=== PATIENT | female | born 1995 ===

== ENCOUNTER 2016-07-02 17:53 | Emergency (ER) | payer MEDICAID, OTHER ==
[2016-07-02 17:54] VITALS: BMI 23.2
[2016-07-02 17:59] VITALS: BP 115/61; PULSE 105; RESP 20; TEMP 97.5; O2SAT 98
--- NOTE | 2016-07-02 18:30 | ED PDOC ---
HPI: Psych/Substance Abuse Time Seen by Provider: 07/02/16 18:06 Chief Complaint (Nursing): Anxiety Chief Complaint (Provider): anxiety ED Caveat: Acuity of Condition Additional Complaint(s): 20yo F in Ed with hx pf untreated panic attacks states she had panic attack today upon awaking from sleep-states this month is the anniversary of he mothers and her birthday. denies SI/HI/hallucinations. Symptoms currently resolved. Past Medical History Reviewed: Historical Data, Nursing Documentation, Vital Signs Vital Signs: Last Vital Signs Temp 97.5 F L 07/02/16 17:57 Pulse 105 H 07/02/16 17:57 Resp 20 07/02/16 17:57 BP 115/61 07/02/16 17:57 Pulse Ox 98 07/02/16 17:57 - Medical History PMH: Asthma - Surgical History Surgical History: Tonsillectomy - Family History Family History: States: Unknown Family Hx - Immunization History Hx Tetanus Toxoid Vaccination: No Hx Influenza Vaccination: No Hx Pneumococcal Vaccination: No - Home Medications Home Medications: Ambulatory Orders Medication Instructions Recorded Alprazolam [Xanax] 0.5 mg PO BID #16 tab 07/02/16 - Allergies Allergies/Adverse Reactions: Allergies Allergy/AdvReac Type Severity Reaction Status Date / Time No Known Allergies Allergy Verified 07/02/16 17:56 Review of Systems ROS Statement: Except As Marked, All Systems Reviewed And Found Negative Physical Exam - Reviewed Nursing Documentation Reviewed: Yes Vital Signs Reviewed: Yes - Physical Exam Appears: Positive for: Non-toxic, No Acute Distress Head Exam: Positive for: ATRAUMATIC, NORMOCEPHALIC Skin: Positive for: Normal Color, Warm Eye Exam: Positive for: Normal appearance, EOMI, PERRL Cardiovascular/Chest: Positive for: Regular Rate, Rhythm. Negative for: Murmur Respiratory: Positive for: Normal Breath Sounds. Negative for: Wheezing Neurologic/Psych: Positive for: Alert, Oriented - ECG O2 Sat by Pulse Oximetry: 98 (RA) Pulse Ox Interpretation: Normal Medical Decision Making Medical Decision Makin:29 Patient given mental clinic referrals, and Rx for Xanax. Patient stable for discharge home. pt offered crisis services, but decline. considering pt is no with SI/HI/ hallucinations pt is safe for d/c. pt given list of mental health counseling centers. Scribe Attestation: Documented by Amanda Hebert, acting as a scribe for Nina Gamez PA-C. Provider Scribe Attestation: All medical record entries made by the Scribe were at my direction and personally dictated by me. I have reviewed the chart and agree that the record accurately reflects my personal performance of the history, physical exam, medical decision making, and the department course for this patient. I have also personally directed, reviewed, and agree with the discharge instructions and disposition Disposition - Clinical Impression Clinical Impression: Anxiety - Patient ED Disposition Is Patient to be Admitted: No Counseled Patient/Family Regarding: Diagnosis, Need For Followup, Rx Given - Disposition Referrals: [facility] Service [Outside] Disposition: Routine/Home Disposition Time: 18:29 Condition: STABLE Prescriptions: Alprazolam [Xanax] 0.5 mg PO BID #16 tab Instructions: Anxiety (ED) Forms: [facility] ED School/Work Excuse
== END 2016-07-02 18:34 | disposition home or self-care (01) ==
LOC: H.ER 17:53
DX: F41.9 Anxiety disorder, unspecified (principal)

== ENCOUNTER 2016-07-05 21:40 | Emergency (ER) | payer MEDICAID ==
[2016-07-05 21:40] VITALS: BMI 23.2
[2016-07-05 23:07] VITALS: BP 113/50; PULSE 78; RESP 18; TEMP 98.3; O2SAT 100
[2016-07-05] MEDS ORDERED: Sodium Chloride 0.9% 1,000 ML IV ONE (23:46)
--- NOTE | 2016-07-06 00:17 | ED PDOC ---
HPI:Nausea, Vomiting, Diarrhea Time Seen by Provider: 07/05/16 23:19 Chief Complaint (Nursing): GI Problem Chief Complaint (Provider): n/v History Per: Patient History/Exam Limitations: no limitations Onset/Duration Of Symptoms: Hrs Current Symptoms Are (Timing): Still Present Have you had recent travel within the past 21 days to any of the following countries: [place], [place], [place] or [place]?: No Exacerbating Factors: None Alleviating Factors: None Additional Complaint(s): 20yo female presents to the ED with c/o several episodes of n/v that began today. No travel or sick contacts. No exacerbating or alleviating factors. Patient also reports mild sore throat described as burning. Past Medical History Reviewed: Historical Data, Nursing Documentation, Vital Signs Vital Signs: Last Vital Signs Temp 98.3 F 07/05/16 23:04 Pulse 78 07/05/16 23:04 Resp 18 07/05/16 23:04 BP 113/50 L 07/05/16 23:04 Pulse Ox 100 07/05/16 23:04 - Medical History PMH: Asthma - Surgical History Surgical History: Tonsillectomy - Family History Family History: States: No Known Family Hx - Immunization History Hx Tetanus Toxoid Vaccination: No Hx Influenza Vaccination: No Hx Pneumococcal Vaccination: No - Home Medications Home Medications: Ambulatory Orders Medication Instructions Recorded Alprazolam [Xanax] 0.5 mg PO BID #16 tab 07/02/16 Famotidine [Pepcid] 20 mg PO Q12 #14 tab 07/06/16 Ondansetron ODT [Zofran ODT] 4 mg PO Q6 PRN #16 odt 07/06/16 - Allergies Allergies/Adverse Reactions: Allergies Allergy/AdvReac Type Severity Reaction Status Date / Time No Known Allergies Allergy Verified 07/02/16 17:56 Review of Systems ROS Statement: Except As Marked, All Systems Reviewed And Found Negative Constitutional: Positive for: Other (no travel or sick contacts ) ENT: Positive for: Throat Pain (mild ) Gastrointestinal: Positive for: Nausea, Vomiting Physical Exam - Reviewed Nursing Documentation Reviewed: Yes Vital Signs Reviewed: Yes - Physical Exam Appears: Positive for: Well, No Acute Distress Head Exam: Positive for: ATRAUMATIC, NORMAL INSPECTION, NORMOCEPHALIC Skin: Positive for: Normal Color, Warm, Dry Eye Exam: Positive for: Normal appearance ENT: Positive for: Normal ENT Inspection Neck: Positive for: Normal, Painless ROM, Supple Cardiovascular/Chest: Positive for: Regular Rate, Rhythm. Negative for: Murmur , Tachycardia Respiratory: Positive for: Normal Breath Sounds. Negative for: Wheezing, Respiratory Distress Gastrointestinal/Abdominal: Positive for: Normal Exam, Bowel Sounds, Soft. Negative for: Tenderness Back: Positive for: Normal Inspection Extremity: Positive for: Normal ROM. Negative for: Deformity, Swelling Neurologic/Psych: Positive for: Alert, Oriented - Laboratory Results Result Diagrams: 07/06/16 00:36 07/06/16 00:36 - ECG O2 Sat by Pulse Oximetry: 100 Pulse Ox Interpretation: Normal (RA) Medical Decision Making Medical Decision Makin: Impression: n/v, sore throat Plan: Labs IVF reassess Patient s/o to Dr. Cruz at 0000 pending labs, IVF, and re-eval. Scribe Attestation: Documented by Duong Laurent acting as a scribe for Javier Chanel MD. Provider Scribe Attestation: All medical record entries made by the Scribe were at my direction and personally dictated by me. I have reviewed the chart and agree that the record accurately reflects my personal performance of the history, physical exam, medical decision making, and the department course for this patient. I have also personally directed, reviewed, and agree with the discharge instructions and disposition. Disposition - Clinical Impression Clinical Impression: Gastritis - Patient ED Disposition Is Patient to be Admitted: Transfer of Care - Disposition Referrals: Felix Tapia MD [Primary Care Provider] - Disposition: Transfer of Care Disposition Time: 00:00 Condition: STABLE Prescriptions: Famotidine [Pepcid] 20 mg PO Q12 #14 tab Ondansetron ODT [Zofran ODT] 4 mg PO Q6 PRN #16 odt PRN Reason: Nausea/Vomiting Instructions: Gastritis (ED) Patient Signed Over To: Sidney Cruz Handoff Comments: pending labs, IVF, re-eval
--- NOTE | 2016-07-06 01:14 | ED PDOC ---
- Laboratory Results Result Diagrams: 07/06/16 00:36 07/06/16 00:36 - ECG O2 Sat by Pulse Oximetry: 100 Medical Decision Making Medical Decision Making: Patient s/o from Dr. Chanel at 0000 pending labs and re-eval. 0230: Labs reviewed, show no clinically significant findings. Patient reports marked improvement in symptoms and is stable for d/c. Dx: gastritis Rx: zofran, pepcid Encouraged patient to drink plenty of fluids and f/u PCP in 2 days Scribe Attestation: Documented by Duong Laurent acting as a scribe for Sidney Cruz MD. Provider Scribe Attestation: All medical record entries made by the Scribe were at my direction and personally dictated by me. I have reviewed the chart and agree that the record accurately reflects my personal performance of the history, physical exam, medical decision making, and the department course for this patient. I have also personally directed, reviewed, and agree with the discharge instructions and disposition. Disposition Counseled Patient/Family Regarding: Studies Performed, Diagnosis, Need For Followup, Rx Given - Clinical Impression Clinical Impression: Gastritis - POA Present On Arrival: None - Disposition Referrals: Felix Tapia MD [Primary Care Provider] - Disposition: Routine/Home Disposition Time: 02:30 Condition: STABLE Prescriptions: Famotidine [Pepcid] 20 mg PO Q12 #14 tab Ondansetron ODT [Zofran ODT] 4 mg PO Q6 PRN #16 odt PRN Reason: Nausea/Vomiting Instructions: Gastritis (ED)
[2016-07-06 01:51] LABS: BASO % 0.4 % (0.0-2.0); EOS % 0.4 % (0.0-4.0); HEMATOCRIT 38.7 % (34.0-47.0); LYMPH # 2.5 K/uL (1.0-4.3); LYMPH % 30.8 % (20.0-40.0); MEAN CORPUSCULAR HEMOGLOBIN 27.6 pg (27.0-31.0); MEAN CORPUSCULAR HGB CONC 32.4 g/dL (33.0-37.0); MEAN PLATELET VOLUME 10.3 fl (7.2-11.7); MONO # 0.7 K/uL (0.0-0.8); NEUT # 4.8 K/uL (1.8-7.0); NEUT % 59.4 % (50.0-75.0); RED CELL DISTRIBUTION WIDTH 13.2 % (11.5-14.5); WHITE BLOOD COUNT 8.1 K/uL (4.8-10.8)
[2016-07-06 01:54] LABS: RBC URINE 6 /hpf (0-3); URINE BILIRUBIN NEGATIVE (NEGATIVE); URINE BLOOD MODERATE (NEGATIVE); URINE COLOR YELLOW (YELLOW); URINE GLUCOSE (UA) NEG (Normal); URINE KETONE TRACE mg/dL (NEGATIVE); URINE LEUKOCYTE ESTERASE NEG Leu/uL (Negative); URINE PROTEIN NEGATIVE (NEGATIVE); WBC URINE 1 /hpf (0-5)
[2016-07-06 01:59] LABS: CHLORIDE 103 mmol/L (98-107); SODIUM 145 mmol/l (132-148)
[2016-07-06 02:01] LABS: AMYLASE 111 U/L (30-110); BILIRUBIN,TOTAL 2.2 mg/dl (0.2-1.3); CARBON DIOXIDE 26 mmol/L (22-30); GFR AFRICAN-AMERICAN > 60
[2016-07-06 02:02] LABS: ALB/GLOB RATIO 1.2 (1.0-2.1); ALKALINE PHOSPHATASE 59 U/L (38-126); ALT/SGPT 20 U/L (9-52); AST/SGOT 22 U/L (14-36); BLOOD UREA NITROGEN 12 mg/dl (7-17); CALCIUM 9.9 mg/dL (8.4-10.2); GLUCOSE,RANDOM 79 mg/dL (65-105); LIPASE 107 U/L (23-300); TOTAL PROTEIN 8.6 G/DL (6.3-8.2)
== END 2016-07-06 02:44 | disposition home or self-care (01) ==
LOC: H.ER 21:40
DX: K29.70 Gastritis, unspecified, without bleeding (principal); J45.909 Unspecified asthma, uncomplicated

== ENCOUNTER 2016-08-05 22:35 | Emergency (ER) | payer MEDICAID ==
[2016-08-05 22:35] VITALS: BMI 23.2
[2016-08-05 22:48] VITALS: BP 106/61; PULSE 78; RESP 18; TEMP 98.4; O2SAT 100
--- NOTE | 2016-08-05 23:42 | ED PDOC ---
HPI: CCC, URI, Sore Throat Time Seen by Provider: 08/05/16 23:28 Chief Complaint (Nursing): Chest Pain Chief Complaint (Provider): chest pain/back pain History Per: Patient History/Exam Limitations: no limitations Have you had recent travel within the past 21 days to any of the following countries: [place], [place], [place] or [place]?: No Onset/Duration Of Symptoms: Days (4) Current Symptoms Are (Timing): Still Present Location Of Pain: Diffuse Myalgias. denies: Ear(s), Throat, Sinus/es, Headache Sick Contacts (Context): None Associated Symptoms: Cough, Myalgias. denies: Fever, Chills, Sore Throat, Sputum, Neck Pain, Sinus Drainage, Nasal Congestion, Nausea, Vomiting, Diarrhea Ear Symptoms: Bilateral: None Past Medical History Reviewed: Historical Data, Nursing Documentation, Vital Signs Vital Signs: Last Vital Signs Temp 98.4 F 08/05/16 22:44 Pulse 78 08/05/16 22:44 Resp 18 08/05/16 22:44 BP 106/61 08/05/16 22:44 Pulse Ox 100 08/05/16 23:45 - Medical History PMH: Asthma - Surgical History Surgical History: Tonsillectomy - Family History Family History: States: No Known Family Hx - Immunization History Hx Tetanus Toxoid Vaccination: No Hx Influenza Vaccination: No Hx Pneumococcal Vaccination: No - Home Medications Home Medications: Ambulatory Orders Medication Instructions Recorded Alprazolam [Xanax] 0.5 mg PO BID #16 tab 07/02/16 Famotidine [Pepcid] 20 mg PO Q12 #14 tab 07/06/16 Ondansetron ODT [Zofran ODT] 4 mg PO Q6 PRN #16 odt 07/06/16 Cyclobenzaprine [Cyclobenzaprine 10 mg PO BID #14 tab 08/06/16 HCl] Ibuprofen [Motrin] 400 mg PO Q6 #30 tab 08/06/16 - Allergies Allergies/Adverse Reactions: Allergies Allergy/AdvReac Type Severity Reaction Status Date / Time No Known Allergies Allergy Verified 07/02/16 17:56 Review of Systems ROS Statement: Except As Marked, All Systems Reviewed And Found Negative Respiratory: Positive for: Cough. Negative for: Sputum Musculoskeletal: Positive for: Back Pain Physical Exam - Reviewed Nursing Documentation Reviewed: Yes Vital Signs Reviewed: Yes - Physical Exam Appears: Positive for: Non-toxic, No Acute Distress, Uncomfortable Head Exam: Positive for: ATRAUMATIC, NORMAL INSPECTION, NORMOCEPHALIC Skin: Positive for: Normal Color, Warm, DRY Eye Exam: Positive for: EOMI, Normal appearance, PERRL Cardiovascular/Chest: Positive for: Regular Rate, Rhythm Respiratory: Positive for: CNT, Normal Breath Sounds Gastrointestinal/Abdominal: Positive for: Normal Exam, Bowel Sounds, Soft Extremity: Positive for: Normal ROM Lymphatic: Positive for: Normal Exam Neurologic/Psych: Positive for: Alert, Oriented - Laboratory Results Result Diagrams: 08/05/16 23:41 08/05/16 23:41 - ECG O2 Sat by Pulse Oximetry: 100 - Progress ED Course And Treament: pt will get chest xray and flu swab Medical Decision Making Medical Decision Making: pt was offered a chest xray-however pt no longer wants xray of chest. however labs are unremarkable. pt advised to return to ED if with persistent symptoms at time of d/c pt advised to f/u wit pmd or return to ED. Disposition - Clinical Impression Clinical Impression: Back pain, Chest pain - Patient ED Disposition Is Patient to be Admitted: No Counseled Patient/Family Regarding: Studies Performed, Diagnosis, Need For Followup, Rx Given - Disposition Disposition: Routine/Home Disposition Time: 01:40 Condition: STABLE Prescriptions: Cyclobenzaprine [Cyclobenzaprine HCl] 10 mg PO BID #14 tab Ibuprofen [Motrin] 400 mg PO Q6 #30 tab Instructions: Viral Syndrome (ED) Forms: [facility] ED School/Work Excuse
[2016-08-05 23:46] LABS: BASO % 0.6 % (0.0-2.0); EOS # 0.1 K/uL (0.0-0.7); EOS % 1.1 % (0.0-4.0); HEMATOCRIT 34.5 % (34.0-47.0); LYMPH # 2.3 K/uL (1.0-4.3); LYMPH % 42.1 % (20.0-40.0); MEAN CELL VOLUME 85.2 fl (81.0-99.0); MEAN CORPUSCULAR HEMOGLOBIN 27.7 pg (27.0-31.0); MEAN CORPUSCULAR HGB CONC 32.5 g/dL (33.0-37.0); MEAN PLATELET VOLUME 9.6 fl (7.2-11.7); MONO # 0.6 K/uL (0.0-0.8); MONO % 10.8 % (0.0-10.0); NEUT # 2.5 K/uL (1.8-7.0); NEUT % 45.4 % (50.0-75.0); RED CELL DISTRIBUTION WIDTH 13.3 % (11.5-14.5); WHITE BLOOD COUNT 5.5 K/uL (4.8-10.8)
[2016-08-05 23:55] LABS: ALB/GLOB RATIO 1.2 (1.0-2.1); ALKALINE PHOSPHATASE 49 U/L (38-126); ALT/SGPT 21 U/L (9-52); AST/SGOT 19 U/L (14-36); BILIRUBIN,TOTAL 1.3 mg/dl (0.2-1.3); BLOOD UREA NITROGEN 13 mg/dl (7-17); CALCIUM 9.1 mg/dL (8.4-10.2); CARBON DIOXIDE 24 mmol/L (22-30); CHLORIDE 108 mmol/L (98-107); GFR AFRICAN-AMERICAN > 60; GLUCOSE,RANDOM 91 mg/dL (65-105); POTASSIUM 3.8 MMOL/L (3.6-5.0); SODIUM 141 mmol/l (132-148)
--- NOTE | 2016-08-06 09:30 | CARD ---
APPROVED REPORT EKG Measurement Heart [id number] <Conclusion> Normal sinus rhythm Incomplete right bundle branch block Borderline ECG
== END 2016-08-06 02:05 | disposition home or self-care (01) ==
LOC: H.ER 22:35
DX: R07.9 Chest pain, unspecified (principal); J45.909 Unspecified asthma, uncomplicated; I45.10 Unspecified right bundle-branch block; R05 Cough

== ENCOUNTER 2018-03-01 19:38 | Emergency (ER) | payer MEDICAID, OTHER ==
[2018-03-01 19:39] VITALS: BMI 23.2
[2018-03-01 19:45] VITALS: BP 113/67; PULSE 88; RESP 16; TEMP 98.5; O2SAT 100
--- NOTE | 2018-03-01 21:18 | ED PDOC ---
HPI: Influenza Time Seen by Provider: 03/01/18 19:47 Chief Complaint: Cough, Cold, Congestion Chief Complaint (Provider): Cough, Cold, Congestion History Per: Patient Exam Limitations: no limitations (f) Additional complaint(s):: 22 y/o female presents to the ED complaining of cough and sore throat. Patient reports she took DayQuil earlier this morning. She was feeling feverish at work but didn't take her temperature and denies taking any medication for symptoms. Patient states her cough is non-productive of phlegm and she has been eating and drinking normally. Past Medical History Reviewed: Historical Data, Nursing Documentation, Vital Signs Vital Signs: Last Vital Signs Temp 98.5 F 03/01/18 19:44 Pulse 88 03/01/18 19:44 Resp 16 03/01/18 19:44 BP 113/67 03/01/18 19:44 Pulse Ox 100 03/01/18 19:44 - Medical History PMH: Asthma - Surgical History Surgical History: Tonsillectomy - Family History Family History: States: Unknown Family Hx - Immunization History Hx Tetanus Toxoid Vaccination: No Hx Influenza Vaccination: No Hx Pneumococcal Vaccination: No - Home Medications Home Medications: Ambulatory Orders Medication Instructions Recorded Alprazolam [Xanax] 0.5 mg PO BID #16 tab 07/02/16 Famotidine [Pepcid] 20 mg PO Q12 #14 tab 07/06/16 Ondansetron ODT [Zofran ODT] 4 mg PO Q6 PRN #16 odt 07/06/16 Cyclobenzaprine [Cyclobenzaprine 10 mg PO BID #14 tab 08/06/16 HCl] Ibuprofen [Motrin] 400 mg PO Q6 #30 tab 08/06/16 Promethazine HCl/Codeine 10 ml PO Q8H PRN #150 ml 03/01/18 [Prometh-Codein 6.25-10 mg/5 ml] - Allergies Allergies/Adverse Reactions: Allergies Allergy/AdvReac Type Severity Reaction Status Date / Time No Known Allergies Allergy Verified 03/01/18 19:44 Review of Systems ROS Statement: Except As Marked, All Systems Reviewed And Found Negative Constitutional: Positive for: Fever ENT: Positive for: Throat Pain Respiratory: Positive for: Cough. Negative for: Sputum Physical Exam - Reviewed Nursing Documentation Reviewed: Yes Vital Signs Reviewed: Yes - Physical Exam Appears: Positive for: Non-toxic, No Acute Distress Head Exam: Positive for: ATRAUMATIC, NORMOCEPHALIC Skin: Positive for: Normal Color, Warm, DRY Eye Exam: Positive for: EOMI, Normal appearance, PERRL ENT: Positive for: Pharynx Is (clear). Negative for: Pharyngeal Erythema, Tonsillar Exudate, Tonsillar Swelling Neck: Positive for: Normal, Painless ROM Cardiovascular/Chest: Positive for: Regular Rate, Rhythm. Negative for: Murmur, Bradycardia, Tachycardia Respiratory: Positive for: Normal Breath Sounds. Negative for: Respiratory Distress Extremity: Positive for: Normal ROM. Negative for: Pedal Edema, Deformity Neurologic/Psych: Positive for: Alert, Oriented. Negative for: Motor/Sensory Deficits Medical Decision Making Medical Decision Making: Time: 19:57 Initial Impression: cough and sore throat Initial Plan: * Rapid strep * ED Urine preg * Prednisone 21:12 Patient's strep was negative. Patient was given cough medicine and Prednisone Scribe Attestation: Documented by Sreedhar Willoughby, acting as a scribe for Usha Davila PA-C. Provider Scribe Attestation: All medical record entries made by the Scribe were at my direction and per sonally dictated by me. I have reviewed the chart and agree that the record accurately reflects my personal performance of the history, physical exam, medical decision making, and the department course for this patient. I have also personally directed, reviewed, and agree with the discharge instructions and disposition. - ECG O2 Sat by Pulse Oximetry: 100 Disposition - Clinical Impression Clinical Impression: Common cold - Patient ED Disposition Is Patient to be Admitted: No Counseled Patient/Family Regarding: Diagnosis, Need For Followup, Rx Given - Disposition Disposition: Routine/Home Disposition Time: 21:12 Condition: GOOD Prescriptions: Promethazine HCl/Codeine [Prometh-Codein 6.25-10 mg/5 ml] 10 ml PO Q8H PRN #150 ml PRN Reason: Cough Instructions: Cough, Runny Nose, and the Common Cold (DC) Forms: [email or web address] (Maldivian), [facility] ED School/Work Excuse
== END 2018-03-01 20:53 | disposition home or self-care (01) ==
LOC: H.ER 19:38
DX: J00 Acute nasopharyngitis [common cold] (principal); J45.909 Unspecified asthma, uncomplicated

== ENCOUNTER 2018-05-09 18:39 | Emergency (ER) | payer OTHER, MEDICAID ==
[2018-05-09 18:39] VITALS: BMI 23.2
[2018-05-09 18:50] VITALS: RESP 16
[2018-05-09] MEDS ORDERED: Sodium Chloride 0.9% 1,000 ML IV STA ×2 (19:13→21:33)
--- NOTE | 2018-05-09 19:26 | ED PDOC ---
HPI: General Adult Time Seen by Provider: 05/09/18 19:23 Chief Complaint (Nursing): Abdominal Pain Chief Complaint (Provider): ABDOMINAL PAIN History Per: Patient (22 Y/O 10 WEEK HERE WITH COMPLAINT OF EPIGASTRIC PAIN INTERMITTENT X 2 DAYS ASSOCIATED WITH VOMITING. DENIES ANY DYSURIA/FEVERS/CHILLS/DIARRHEA/ETC.) Past Medical History Reviewed: Historical Data, Nursing Documentation, Vital Signs Vital Signs: Last Vital Signs Temp 98.4 F 05/09/18 18:47 Pulse 68 05/09/18 18:47 Resp 16 05/09/18 18:47 BP 90/62 L 05/09/18 18:47 Pulse Ox 100 05/09/18 18:47 - Medical History PMH: Asthma - Surgical History Surgical History: Tonsillectomy - Family History Family History: States: Unknown Family Hx - Immunization History Hx Tetanus Toxoid Vaccination: No Hx Influenza Vaccination: No Hx Pneumococcal Vaccination: No - Home Medications Home Medications: Ambulatory Orders Medication Instructions Recorded Alprazolam [Xanax] 0.5 mg PO BID #16 tab 07/02/16 Famotidine [Pepcid] 20 mg PO Q12 #14 tab 07/06/16 Ondansetron ODT [Zofran ODT] 4 mg PO Q6 PRN #16 odt 07/06/16 Cyclobenzaprine [Cyclobenzaprine 10 mg PO BID #14 tab 08/06/16 HCl] Ibuprofen [Motrin] 400 mg PO Q6 #30 tab 08/06/16 Promethazine HCl/Codeine 10 ml PO Q8H PRN #150 ml 03/01/18 [Prometh-Codein 6.25-10 mg/5 ml] Famotidine [Pepcid] 20 mg PO BID #10 tab 05/09/18 - Allergies Allergies/Adverse Reactions: Allergies Allergy/AdvReac Type Severity Reaction Status Date / Time No Known Allergies Allergy Verified 05/09/18 18:47 Review of Systems ROS Statement: Except As Marked, All Systems Reviewed And Found Negative Constitutional: Positive for: Fever Gastrointestinal: Positive for: Abdominal Pain Physical Exam - Reviewed Nursing Documentation Reviewed: Yes Vital Signs Reviewed: Yes - Physical Exam Appears: Positive for: Well, Non-toxic, No Acute Distress Head Exam: Positive for: ATRAUMATIC, NORMAL INSPECTION, NORMOCEPHALIC Skin: Positive for: Normal Color, Warm, DRY Eye Exam: Positive for: EOMI, Normal appearance, PERRL ENT: Positive for: Normal ENT Inspection Neck: Positive for: Normal, Painless ROM Cardiovascular/Chest: Positive for: Regular Rate, Rhythm Respiratory: Positive for: CNT, Normal Breath Sounds Gastrointestinal/Abdominal: Positive for: Normal Exam, Soft, Tenderness (LEFT UPPER QUADRANT/EPIGASTRIC PAIN) Back: Positive for: Normal Inspection Extremity: Positive for: Normal ROM Neurologic/Psych: Positive for: Alert, Oriented - Laboratory Results Result Diagrams: 05/09/18 20:08 05/09/18 20:30 - ECG O2 Sat by Pulse Oximetry: 100 - Progress ED Course And Treament: NS 1 LITER 500 ML PER HOUR PEPCID 20 MG IV X 1 DOSE ZOFRAN 4 MG IV X 1 DOSE Disposition - Clinical Impression Clinical Impression: Vomiting during - Patient ED Disposition Is Patient to be Admitted: Transfer of Care - Disposition Disposition: Transfer of Care Disposition Time: 20:00 Condition: IMPROVED Prescriptions: Famotidine [Pepcid] 20 mg PO BID #10 tab Instructions: Nausea and Vomiting of (DC) Forms: [employer] ([employer]), [facility] ED School/Work Excuse Patient Signed Over To: Mounika Toro Handoff Comments: PENDING US/LABS/RE-EVAL
[2018-05-09 20:12] LABS: BASO % 0.4 % (0.0-2.0); EOS % 0.4 % (0.0-4.0); HEMOGLOBIN 11.2 g/dL (12.0-16.0); LYMPH # 1.1 K/uL (1.0-4.3); LYMPH % 15.7 % (20.0-40.0); MEAN CELL VOLUME 84.4 fl (81.0-99.0); MEAN CORPUSCULAR HEMOGLOBIN 27.3 pg (27.0-31.0); MEAN CORPUSCULAR HGB CONC 32.4 g/dL (33.0-37.0); MEAN PLATELET VOLUME 10.1 fl (7.2-11.7); MONO # 0.6 K/uL (0.0-0.8); MONO % 8.6 % (0.0-10.0); NEUT # 5.3 K/uL (1.8-7.0); NEUT % 74.9 % (50.0-75.0); RBC 4.11 Mil/uL (3.80-5.20)
[2018-05-09 20:18] LABS: SQUAMOUS EPITHIAL 3 /hpf (0-5); URINE BILIRUBIN NEGATIVE (NEGATIVE); URINE BLOOD NEGATIVE (NEGATIVE); URINE CLARITY SLIGHTY-CLOUDY (Clear); URINE COLOR YELLOW (YELLOW); URINE GLUCOSE (UA) NEG (NEGATIVE); URINE LEUKOCYTE ESTERASE NEG Leu/uL (Negative); URINE PROTEIN NEGATIVE (NEGATIVE)
[2018-05-09 21:40] LABS: ALB/GLOB RATIO 1.1 (1.0-2.1); ALT/SGPT 45 U/L (9-52); AST/SGOT 33 U/L (14-36); BLOOD UREA NITROGEN 8 mg/dl (7-17); CALCIUM 9.1 mg/dL (8.4-10.2); GFR NON-AFRICAN AMERICAN > 60
--- NOTE | 2018-05-09 22:15 | ED PDOC ---
- Laboratory Results Result Diagrams: 05/09/18 20:08 05/09/18 20:30 Lab Results: Total Bilirubin 1.6 mg/dl (0.2-1.3) H 05/09/18 20:30 AST 33 U/L (14-36) 05/09/18 20:30 ALT 45 U/L (9-52) 05/09/18 20:30 Alkaline Phosphatase 54 U/L (38-126) 05/09/18 20:30 Total Protein 7.6 G/DL (6.3-8.2) 05/09/18 20:30 Albumin 4.0 g/dL (3.5-5.0) 05/09/18 20:30 Globulin 3.5 gm/dL (2.2-3.9) 05/09/18 20:30 Albumin/Globulin Ratio 1.1 (1.0-2.1) 05/09/18 20:30 Lipase 143 U/L (23-300) 05/09/18 20:08 Urine Color Yellow (YELLOW) 05/09/18 20:08 Urine Clarity Slighty-cloudy (Clear) 05/09/18 20:08 Urine pH 6.0 (5.0-8.0) 05/09/18 20:08 Ur Specific Waldo 1.018 (1.003-1.030) 05/09/18 20:08 Urine Protein Negative mg/dL (NEGATIVE) 05/09/18 20:08 Urine Glucose (UA) Neg mg/dL (NEGATIVE) 05/09/18 20:08 Urine Ketones 80 mg/dL (NEGATIVE) 05/09/18 20:08 Urine Blood Negative (NEGATIVE) 05/09/18 20:08 Urine Nitrate Negative (NEGATIVE) 05/09/18 20:08 Urine Bilirubin Negative (NEGATIVE) 05/09/18 20:08 Urine Urobilinogen 4.0 mg/dL (0.2-1.0) H 05/09/18 20:08 Ur Leukocyte Esterase Neg Xiomara/uL (Negative) 05/09/18 20:08 Urine RBC (Auto) 3 /hpf (0-3) 05/09/18 20:08 Urine Microscopic WBC 1 /hpf (0-5) 05/09/18 20:08 Ur Squamous Epith Cells 3 /hpf (0-5) 05/09/18 20:08 Beta HCG, Quant 052684.00 mIU/mL 05/09/18 20:08 - ECG O2 Sat by Pulse Oximetry: 100 - Progress ED Course And Treament: Case endorsed to copywriter from Frankie CHAUHAN pending labs, imaging, re-eval CLINICAL HISTORY: Abdominal pain and vomiting. TECHNIQUE: Realtime sonographic images were obtained in multiple projections. COMMENTS: The liver is of uniform echo texture without evidence of mass or defect measuring 15.7 cm. There is no intra or extrahepatic biliary ductal dilatation. The common bile duct measures 0.3 cm. The gallbladder is physiologically distended without evidence of calculi. Gallbladder sludge is seen. The gallbladder wall is not thickened measuring 0.2 cm and there is no pericholecystic fluid. There is no abdominal ascites. The visualized portions of abdominal aorta and inferior vena cava present no abnormalities. The visualized portions of the pancreas are unremarkable. The spleen is of uniform echo texture and does not appear enlarged measuring 9.4 cm. The right kidney measures 10.4 x 3.9 x 4 cm and the left kidney measures 10.4 x 4.6 x 5.6 cm. Both kidneys are free of hydronephrosis. IMPRESSION: Gallbladder sludge is seen. Otherwise the study is unremarkable EXAM: US Obstetrical, Complete <14 weeks CLINICAL HISTORY: Abd pain/ TECHNIQUE: Transvaginal and transabdominal imaging of the maternal pelvis and a <14 week gestation with image documentation. COMPARISON: None provided. FINDINGS: GESTATION: A single living IUP is identified estimated to be 10 weeks and 3 days in age, +/- 5 days. cardiac activity was documented beating at a rate of 164 BPM. UTERUS: Unremarkable. No myometrial mass. CERVIX: Closed. Unremarkable. Measuring 4.3 cm longitudinally. OVARIES: Unremarkable left ovary. The right ovary was not detected. FREE FLUID: No free fluid. IMPRESSION: 1. Single living intrauterine . No acute abnormality. 2. The MARIAN is 12/02/2018. 3. The right ovary was not identified On re-eval, patient resting comfortably; states she is feeling better. Tolerating PO Patient educated on findings, discharged with instructions to follow up with [facility] within 2-3 days Rx Pepcid provided Advised bland diet, increase fluid intake Return precautions given Disposition - Clinical Impression Clinical Impression: Vomiting during - POA Present On Arrival: None - Disposition Disposition: Routine/Home Disposition Time: :46 Condition: IMPROVED Prescriptions: Famotidine [Pepcid] 20 mg PO BID #10 tab Instructions: Nausea and Vomiting of (DC) Forms: [employer] (Estonian)
[2018-05-09 23:02] VITALS: BP 100/58; PULSE 72; TEMP 98.2
--- NOTE | 2018-05-10 10:09 | US ---
Date of service: 2018-05-09 20:47:55 PROCEDURE: OB Pelvic Ultrasound HISTORY: ABDOMINAL PAIN/ 03/03/2018 COMPARISON: None available. FINDINGS: UTERUS: Gestational sac: Single live intrauterine gestation Gestational sac 47 mm, equal to 10 weeks 3 days gestational age. Starbrick-rump length 35 mm equivalent to 10 weeks 3 days Heart rate: 163 bpm. age (Ultrasound estimated): Gestational age. Ten weeks 3 days [place]kis-gestational hemorrhage: None. 4 mm yolk sac visualized. Date of delivery (Ultrasound estimated) : 12/02/2018 Uterus measures 10.4 x 7.4 x 6.8 cm. Normal in size and appearance. CERVIX: Measures 4.3 cm. Long and closed. No cervical abnormality seen. RIGHT OVARY: Not visualized LEFT OVARY: Measures 2.8 x 1.8 x 2.1 cm. No solid mass. Normal flow. FREE FLUID: None. OTHER FINDINGS: None. IMPRESSION: Single live intrauterine gestation of approximately 10 weeks 3 days gestational age. MARIAN 12/02/2018. No subchorionic hemorrhage. heart rate 163 beats per minute. Cervix long and closed. The preliminary findings for this examination were reported by [facility] at 9:47 p.m. on 05/09/2018. There is concurrence of this report with the preliminary findings.
--- NOTE | 2018-05-10 10:11 | US ---
Date of service: 05/09/2018 HISTORY: ABDOMINAL PAIN COMPARISON: None. TECHNIQUE: Sonographic evaluation of the abdomen. FINDINGS: LIVER: Measures 15.7 cm. Normal echogenicity of the liver parenchyma. No mass. No intrahepatic bile duct dilatation. GALLBLADDER: No cholelithiasis. Gallbladder sludge noted. No mural thickening. No pericholecystic fluid. Negative sonographic Waite sign. COMMON BILE DUCT: Measures mm. 3 PANCREAS: Unremarkable as visualized. No mass. No ductal dilatation. RIGHT KIDNEY: Measures 10.4cm. Normal echogenicity. No calculus, mass, or hydronephrosis. LEFT KIDNEY: Measures 10.4cm. Normal echogenicity. No calculus, mass, or hydronephrosis. SPLEEN: Normal in size and contour. No mass. AORTA: No aneurysmal dilatation. IVC: Unremarkable. OTHER FINDINGS: None. IMPRESSION: No evidence of cholelithiasis or cholecystitis. The preliminary findings for this examination were reported by [facility] at 9:56 p.m. on 05/09/2018. There is concurrence of this report with the preliminary findings.
[2018-05-12 15:23] VITALS: O2SAT 100
== END 2018-05-09 23:01 | disposition home or self-care (01) ==
LOC: H.ER 18:39
DX: O21.9 Vomiting of pregnancy, unspecified (principal); Z3A.10 10 weeks gestation of pregnancy
CPT/HCPCS: 76700; 76815; 80053; 81003; 81025; 83690; 84702; 85025; 87086; 96374; 96375; 99282; J2405; J2765; J7030